=== PATIENT | male | born 1980 | race Caucasian/White ===

== ENCOUNTER 2017-08-11 12:22 | Emergency (ER) | payer OTHER ==
[~2017-08-11] VITALS: Ht 170.2 cm; Wt 88.3 kg
[2017-08-11 12:32] VITALS: BP 153/83
[2017-08-11] MEDS ORDERED: HYDROmorphone 1 MG/ML, 1ML IM ONE (13:30)
[2017-08-11] MEDS ORDERED: HYDROmorphone 2 MG/ML, 1ML ONE (13:45)
== END 2017-08-11 18:40 | disposition home or self-care (01) ==
LOC: ED 13:33
DX: S80.02XA Contusion of left knee, initial encounter (principal); S80.01XA Contusion of right knee, initial encounter; M54.5 Low back pain; W18.30XA Fall on same level, unspecified, initial encounter; Y93.89 Activity, other specified; Y92.009 Unspecified place in unspecified non-institutional (private) residence as the place of occurrence of the external cause; Y99.8 Other external cause status
CPT/HCPCS: 29105; 70450; 72110; 72125; 99284